=== PATIENT | male | born 1980 | race Caucasian/White ===

== ENCOUNTER 2024-04-02 11:27 | Inpatient (IN) | payer OTHER, SELFPAY ==
[2024-04-02] VITALS (14 sets, daily range): BP systolic 127–160; BP diastolic 88–105; PULSE 80–110; RESP 13–28; TEMP 36.4–36.9; O2SAT 91–94; BMI 63.1
--- NOTE | 2024-04-02 11:45 | ED_ITS ---
HPI - General Adult General Chief complaint: Shortness of Breath/Dyspnea Stated complaint: High D-dimer Time Seen by Provider: 04/02/24 11:28 History of Present Illness HPI narrative: Patient seen in urgent care yesterday. Reports cough/ illness that has been present for about one week with waxing and waning symptoms. Patient received result for labs today and was encouraged to be seen in ED due to elevated d- dimer. Patient reports shortness of breath for about a week. This has been pr ogressively getting worse where he will need to lean against a wall for support. Denies chest pain, light headness. 43 year old man presenting to the emergency department with concern of shortness of breath. Apparently had a high D-dimer also in urgent care yesterday and was today recommended to present to the emergency department directly. Was actually sick starting about 3 weeks ago. Home testing for COVID was negative. Illness included cough and congestive symptoms. Seemed to get better and then worse now over the last week with increasing and marked exertional dyspnea. Normally quite active on the treadmill and does not have trouble with that. Urgent care D-dimer was measured at 5.2 with upper normal of 0.5. This was done in isolation without other lab testing as far as I can determine. Chest x-ray was reportedly normal yesterday and was initiated on then on azithromycin. Took initial dose of azithromycin and spent all night coughing. Some achiness in the right knee but he reports the reconstruction there in the past. Otherwise no leg pain or swelling. Father with a history of postoperative blood clots. Related Data Home Medications ?Medication ?Instructions ?Recorded ?Confirmed albuterol sulfate 90 mcg/actuation 1 inh inhalation Q6H 04/02/24 04/02/24 aerosol inhaler azithromycin PO 04/02/24 Allergies Allergy/AdvReac Type Severity Reaction Status Date / Time No Known Drug Allergies Allergy Verified 04/02/24 12:36 Review of Systems Status of ROS: Reports: 6 or more systems reviewed and unremarkable except as noted in History and below Exam Narrative: Exam Narrative: Pleasant. NAD. Not coughing now. Subtly labored in breathing. Skin is warm and dry. No pain to palpation over the lower extremities. No pitting edema. Lungs are clear actually. Heart in elevated rate and regular rhythm distant. Abdomen is obese. Vitals noted on arrival does include pulse ox 91%. Const: Vital Signs, click to edit/add: Vital Signs - 24 hr 04/02/24 11:35 04/02/24 13:22 04/02/24 13:23 Temperature 98 F Pulse Rate 92 89 Pulse Rate [Pulse Oximeter] 110 H Respiratory Rate 26 H 20 Blood Pressure 141/92 H Blood Pressure [Ri ght Upper Arm] 160/99 H Pulse Oximetry 91 93 92 Oxygen Delivery Me thod Room Air Documenting provider has reviewed patient's vital signs: yes Course Vital Signs Vital signs: Initial Vital Signs Temperature 98 F 04/02/24 11:35 Temperature Source Temporal Artery Scan 04/02/24 11:35 Pulse Rate 110 H 04/02/24 11:35 Respiratory Rate 26 H 04/02/24 11:35 Blood Pressure 160/99 H 04/02/24 11:35 Blood Pressure Mean 119 H 04/02/24 11:35 Pulse Oximetry 91 04/02/24 11:35 Oxygen Delivery Method Room Air 04/02/24 11:35 Vital Signs Temperature 98 F 04/02/24 11:35 Pulse Rate 110 H 04/02/24 11:35 Respiratory Rate 26 H 04/02/24 11:35 Blood Pressure 160/99 H 04/02/24 11:35 Pulse Oximetry 91 04/02/24 11:35 Oxygen Delivery Method Room Air 04/02/24 11:35 Temperature 98 F 04/02/24 11:35 Pulse Rate 89 04/02/24 13:23 Respiratory Rate 20 04/02/24 13:22 Blood Pressure 141/92 H 04/02/24 13:22 Pulse Oximetry 92 04/02/24 13:23 Oxygen Delivery Method Room Air 04/02/24 11:35 Medical Decision Making MDM Narrative Medical decision making narrative: Unsure what to make of this admittedly rather elevated D-dimer in isolation. Certainly concerning symptoms with tachycardia and hypoxia for pulmonary embolus. Some of this might be Pickwick[place]. Surely has bronchitis; possible pneumonia not visualized chest x-ray yesterday. This might also be elevating D- dimer. Will recheck labs. Anticipating CT imaging Independent review of CT imaging by me shows suboptimal study. Small clots noted in lung bases. Discussed with radiology. Overread below. Indication: HIGH ELEVATED D-DIMER, HYPOXIA Technique: CT pulmonary arteriography of the chest was performed following the administration of 150 mL Isovue 370. Comparison: None available. Findings: Lungs and pleura: Few patchy/nodular sub solid opacities in the right upper lobe measuring up to 9 mm. No pleural effusion or pneumothorax. Heart and great vessels: The heart is normal in size. No pericardial effusion. Enlarged main pulmonary artery which can be seen in the setting of pulmonary hypertension. Mildly increased RV: LV ratio suggesting right heart strain. Pulmonary artery opacification is suboptimal. There are occlusive filling defects within the right and left lobar, segmental and subsegmental pulmonary artery branches. Additionally, there may be filling defects within the right upper and middle lobe pulmonary artery branches.. Thyroid and mediastinum: Thyroid is normal. No mediastinal lymphadenopathy by size criteria. Chest wall: Unremarkable. Visualized upper abdomen: Hepatic steatosis. Bones: Multilevel degenerative disc disease. Impression: 1. Suboptimal contrast bolus timing; however, there appear to be acute pulmonary emboli within at least the bilateral lower lobar, segmental and subsegmental pulmonary artery branches. There may be additional filling defects within the right upper and middle lobe as well. Mildly enlarged RV:LV ratio raises concern for right heart strain. 2. Few patchy subsolid nodules in the right upper lobe, the largest measures 9 mm. Findings are favored to be infectious/inflammatory in etiology; however, recommend chest CT follow-up in 3-6 months to ensure resolution. 3. Enlarged main pulmonary artery, which can be seen in setting of pulmonary hypertension. 4. Hepatic steatosis. Findings 1-3 were discussed via telephone with Dr. Klein on 04/02/2024 at 12:55 p.m. Please note that all CT scans at this facility use dose modulation, iterative reconstruction, and/or weight-based dosing when appropriate to reduce radiation dose to as low as reasonably achievable. Dictated by Teressa Harmon MD @ 04/02/2024 1:00:01 PM Discussed with hospitalist for admission. Initiating heparin. Will attempt to get an echocardiogram out of the emergency department considering some evidence of right heart strain. ProBNP of 1000 Vitals stable. Lab Data Lab results reviewed: Yes I reviewed the patient's lab results Labs: Lab Results 04/02/24 04/02/24 Range/Units 12:20 13:19 WBC 10.15 (4.50-11.00) K/uL RBC 5.21 (4.30-5.90) m/uL Hgb 15.2 (13.5-17.5) gm/dL Hct 46.3 (37.0-53.0) % MCV 89 (80-100) fL MCH 29 (26-34) pg MCHC 33 (32-36) gm/dL RDW Coeff of Evelio 13.2 (11.5-15.5) % Plt Count 204 (140-440) K/uL Neut % (Auto) 69.5 (42.0-72.0) % Lymph % (Auto) 21.4 (20-44) % [place] % (Auto) 8.0 (0.0-11.0) % Eos % (Auto) 0.8 (0.0-7.0) % Baso % (Auto) 0.2 (0.0-3.0) % Neut # (Auto) 7.06 H (1.7-7.0) K/uL Lymph # (Auto) 2.17 (0.90-2.90) K/uL [place] # (Auto) 0.80 (0.00-0.90) K/UL Eos # (Auto) 0.08 (0.00-0.50) K/uL Baso # (Auto) 0.02 (0.00-0.30) K/uL Abs Immat Gran (auto) 0.01 (0.00-0.30) K/uL Imm/Tot Granulo (auto) 0.1 % VBG pH 7.406 (7.32-7.43) VBG pCO2 44 (40-50) mmHG VBG pO2 38.5 (25-47) mmHG VBG HCO3 28 (21-28) mmol/L Sodium 138 (135-149) mmol/L Potassium 3.9 (3.6-5.1) mmol/L Chloride 103 (96-114) mmol/L Carbon Dioxide 26 (20-32) mmol/L Anion Gap 9 (7-15) mEq/L BUN 15 (5-24) mg/dL Creatinine 0.8 (0.5-1.5) mg/dL Estimated GFR 114 ml/min Glucose 104 (60-115) mg/dL Calcium 9.4 (8.4-10.6) mg/dL Troponin I 0.02 (0.01-0.04) ng/mL C-Reactive Protein 2.0 H (0.5-1.0) mg/dL NT-Pro-B Natriuret Pep 1000 pg/mL Lab Acknowledgement Test Added ECG Data Attestation: I personally reviewed and interpreted this ECG as follows: (Normal sinus at a rate of 90. Pr no evidence of strain. Baseline irritability however.) Critical Care Time Critical Care Time Total Critical Care Time in Minutes: 30 Discharge Plan Discharge Prescriptions: No Action azithromycin PO albuterol sulfate 90 mcg/actuation HFA aerosol inhaler 1 inh inhalation Q6H Follow Up/Referrals: Provider,Not a Local [Primary Care Provider] -
--- NOTE | 2024-04-02 12:08 | CRLHL7_ITS ---
For Patients: As a result of the Century Cures Act, medical imaging exams and procedure reports are released immediately into your electronic medical record. You may view this report before your referring provider. If you have questions, please contact your health care provider. Indication: HIGH ELEVATED D-DIMER, HYPOXIA Technique: CT pulmonary arteriography of the chest was performed following the administration of 150 mL Isovue 370. Comparison: None available. Findings: Lungs and pleura: Few patchy/nodular sub solid opacities in the right upper lobe measuring up to 9 mm. No pleural effusion or pneumothorax. Heart and great vessels: The heart is normal in size. No pericardial effusion. Enlarged main pulmonary artery which can be seen in the setting of pulmonary hypertension. Mildly increased RV: LV ratio suggesting right heart strain. Pulmonary artery opacification is suboptimal. There are occlusive filling defects within the right and left lobar, segmental and subsegmental pulmonary artery branches. Additionally, there may be filling defects within the right upper and middle lobe pulmonary artery branches.. Thyroid and mediastinum: Thyroid is normal. No mediastinal lymphadenopathy by size criteria. Chest wall: Unremarkable. Visualized upper abdomen: Hepatic steatosis. Bones: Multilevel degenerative disc disease. Impression: 1. Suboptimal contrast bolus timing; however, there appear to be acute pulmonary emboli within at least the bilateral lower lobar, segmental and subsegmental pulmonary artery branches. There may be additional filling defects within the right upper and middle lobe as well. Mildly enlarged RV:LV ratio raises concern for right heart strain. 2. Few patchy subsolid nodules in the right upper lobe, the largest measures 9 mm. Findings are favored to be infectious/inflammatory in etiology; however, recommend chest CT follow-up in 3-6 months to ensure resolution. 3. Enlarged main pulmonary artery, which can be seen in setting of pulmonary hypertension. 4. Hepatic steatosis. Findings 1-3 were discussed via telephone with Dr. Klein on 04/02/2024 at 12:55 p.m. Please note that all CT scans at this facility use dose modulation, iterative reconstruction, and/or weight-based dosing when appropriate to reduce radiation dose to as low as reasonably achievable. Dictated by Teressa Harmon MD @ 04/02/2024 1:00:01 PM (Electronically Signed)
--- OUTSIDE RECORDS SUMMARY | 2024-04-02 12:10 | XMS_ITS | Clinical Summary ---
Author Organization [facility] Address [address] [place] [id number] Care Team Providers Care Administrative And Program Specialist Name Role Phone Isaiah Crespo MD Primary Care Provider [phone] Isaiah Crespo MD Unavailable Allergies No known active allergies Medications No known medications Immunizations Name Administration Dates Next Due COVID-19 MONOVALENT 12+ (Pfizer) 12/04/2020,05/14,05/08/2020 Influenza (IIV3) PF 12/21/2011 Influenza Vaccine >6 months,quad, PF 11/03/2021, 11/13/2020,11/08/2017 Family History Medical History Relation Comments Venous thrombosis Father Obesity Mother had gastric bypa ss Relation Status Comments Father Mother Sister Social History Tobacco Use Types Packs/Day Years Used Date Smoking Tobacco: Never Smokeless Tobacco: Never Alcohol Use Standard Drinks/Week Comments Not Currently 0 (1 standard drink = 0.6 oz pur e alcohol) Social Connection and Isolat ion Panel [NHANES] Answer Date Recorded In a typical week, how many times do you talk on the phone with family, friends, or neighbors? More than three times a week 10/29/2021 How often do you get togethe r with friends or relatives? Once a week 10/29/2021 How often do you attend chur ch or yazidi services? More than 4 times per year 10/29/2021 Do you belong to any clubs o r organizations such as methodist groups, unions, fraternal or athletic groups, or school groups? Yes 10/29/2021 Attends Club or Organization Meetings Not on [place] e 10/29/2021 Are you , , di vorced, , never , or living with a partner? 10/29/2021 AUDIT-C Answer Date Recorded Q1: How often do you have a drink containing alc ohol? Monthly or less 10/29/2021 Q2: How many drinks containi ng alcohol do you have on a typical day when you are drinking? 1 or 2 10/29/2021 Q3: How often do you have si x or more drinks on one occasion? Never 10/29/2021 Overall Financial Resource Strain (CARDIA) Answe r Date Recorded How hard is it for you to pa y for the very basics like food, housing, medical care, and heating? Not very hard 10/29/2021 PHQ-2 Answer Date Recorded PHQ-2 Score 0 11/03/2021 [facility] - Occupational Stress Questionnaire Answer Date Recorded Do you feel stress - tense, restless, nervous, or anxious, or unable to sleep at night because your mind is troubled all the time - these days? Not at all 10/29/2021 Exercise Vital Sign Answer Date Recorde d On average, how many days pe r week do you engage in moderate to strenuous exercise (like a brisk walk)? 7 days 10/29/2021 On average, how many minutes do you engage in exercise at this level? 60 min 10/29/2021 Hunger Vital Sign Answer Date Recorded Within the past 12 months, y ou worried that your food would run out before you got the money to buy more. Never true 10/30/19 22 Within the past 12 months, t he food you bought just didn't last and you didn't have money to get more. Never true 10/29/2021 PRAPARE - Transportation Answer Date Re corded In the past 12 months, has l ack of transportation kept you from medical appointments or from getting medications? No 10/14 In the past 12 months, has l ack of transportation kept you from meetings, work, or from getting things needed for daily living? No 10/29/2021 Housing Stability Vital Sign Answer Vinod e Recorded In the last 12 months, was t here a time when you were not able to pay the mortgage or rent on time? No 10/29/2021 In the last 12 months, how many places have you lived? 1 10/29/2021 In the last 12 months, was t here a time when you did not have a steady place to sleep or slept in a mcc (including now)? No 10/29/2021 Adolescent Education Answer Date Record ed Getting School Help Needed Not on file 11/05 Sex and Gender Information Value Date Recorded Sex Assigned at Male 09/19/2021 5:58 PM CDT Legal Sex Male 5:33 PM CDT Gender Identity Male 09/19/2021 5:58 PM CDT Sexual Orientation Not on file Last Filed Vital Signs Vital Sign Reading Time Taken Comments Blood Pressure 138/88 11/03/2021 6:57 AM CDT Pulse 80 11/03/2021 6:57 AM CDT Temperature 36.8 C (98.3 F) 11/03/2021 6:57 AM CDT Respiratory Rate 16 11/03/2021 6:57 AM CDT Oxygen Saturation 98% 11/03/2021 6:57 AM CDT Inhaled Oxygen Concentration - - Weight 199.7 kg (440 lb 4.8 oz) 11/03/2021 6:57 AM CDT Height 180.3 cm (5' 11) 11/03/2021 6:57 AM CDT Body Mass Index 61.41 11/03/2021 6:57 AM CDT Plan of Treatment Upcoming Encounters Date Type Department Care Team (Late st Contact Info) Description 04/24/2024 9:00 AM CDT Office Visit [facility] [id number] [place] [phone] [place] [id number] [place] [address] Health Maintenance Due Date Last Done Comments HEPATITIS B IMMUNIZATION (1 of 3 - 19+ 3-dose series) 2001 DTAP/TDAP/TD IMMUNIZATION (1 - Tdap) 12/23/2007 ANNUAL REVIEW OF HM ORDERS 11/03/2022 11/03/2021 YEARLY PREVENTIVE VISIT 11/03/2022 11/03/2021 COVID-19 Vaccine ( season) 2023 12/17/2021, 12/04/2020, 05/29/2020, Additional history exists INFLUENZA VACCINE (#1) 2023 2, 11/13/2020, 12/06/2019, Additional history exists PHQ-2 (once per calendar year) 2024 11/03/2021 GLUCOSE 11/03/2024 11/03/2021 ADVANCE CARE PLANNING 11/03/2026 11/03/2021 LIPID 11/03/2026 11/03/2021 ZOSTER IMMUNIZATION (1 of 2) 2032 HEPATITIS C SCREENING Discontinued HIV SCREENING Discontinued HPV IMMUNIZATION Aged Out No longer e ligible based on patient's age to complete this topic MENINGITIS IMMUNIZATION Aged Out No l onger eligible based on patient's age to complete this topic Pneumococcal Vaccine: Pediatrics (0 to 5 Years) and At-Risk Patients (6 to 49 Years) Aged Out No longer eligible based on patient's age to complete this topic Procedures Procedure Name Priority Date/Time Associated Diagnosis Comments COMPREHENSIVE METABOLIC PANEL Routine 11/03/2021 7:46 AM CDT Routine general medical examination at a health care facility LIPID REFLEX TO DIRECT LDL PANEL Routine 11/03/2021 7:46 AM CDT Screening for hyperlipidemia from Last 3 Months or Most Recently Relevant to Health Maintenance Results * (ABNORMAL) Lipid panel reflex to direct LDL Non-fasting (11/03/2021 7:46 AM CDT) Cholesterol 176 <200 mg/dL 11/03/2021 3:06 PM CDT [facility] Triglycerides 97 <150 mg/dL 11/03/2021 3:06 PM CDT [facility] Direct Measure HDL 49 >=40 mg/dL 11/03/2021 3:06 PM CDT [facility] LDL Cholesterol Calculated 108(H) <=100 mg/dL 11/03/2021 3:06 PM CDT [facility] Non HDL Cholesterol 127 <130 mg/dL 11/03/2021 3:06 PM CDT [facility] Patient Fasting > 8hrs? Yes 11/03/2021 3:06 PM CDT [facility] Blood STRUCTURE OF LEFT UPPER LIMB / Unknown Venipuncture / Unknown 11/03/2021 7:46 AM CDT 11/03/2021 7:46 AM CDT Narrative [facility] - 11/03/2021 3:06 PM CDT Cholesterol Desirable: <200 mg/dL Triglycerides Normal: Less than 150 mg/dL Borderline High: 150-199 mg/dL High: 200-499 mg/dL Very High: Greater than or equal to 500 mg/dL Direct Measure HDL Female: Greater than or equal to 50 mg/dL Male: Greater than or equal to 40 mg/dL LDL Cholesterol Desirable: <100mg/dL Above Desirable: 100-129 mg/dL Borderline High: 130-159 mg/dL High: 160-189 mg/dL Very High: >= 190 mg/dL Non HDL Cholesterol Desirable: 130 mg/dL Above Desirable: 130-159 mg/dL Borderline High: 160-189 mg/dL High: 190-219 mg/dL Very High: Greater than or equal to 220 mg/dL us Isaiah Crespo MD LAB - BLOOD ORDERABLES Final Res ult [facility] [address] Lab (no room number, 1st floor of clinic) [place] [address], [facility] [phone] * (ABNORMAL) Comprehensive metabolic panel (BMP + Alb, Alk Phos, ALT, AST, Total. Bili, TP) (11/03/2021 7:46 AM CDT) Sodium 139 133 - 144 mmol/L 11/03/2021 3:06 PM CDT [facility] Potassium 4.4 3.4 - 5.3 mmol/L 11/03/2021 3:06 PM CDT [facility] Chloride 106 94 - 109 mmol/L 11/03/2021 3:06 PM CDT [facility] Carbon Dioxide (CO2) 25 20 - 32 mmol/L 11/03/2021 3:06 PM CDT [facility] Anion Gap 8 3 - 14 mmol/L 11/03/2021 3:06 PM CDT [facility] Urea Nitrogen 10 7 - 30 mg/dL 11/03/2021 3:06 PM CDT [facility] Creatinine 0.75 0.66 - 1.25 mg/dL 11/03/2021 3:06 PM CDT [facility] Calcium 9.5 8.5 - 10.1 mg/dL 11/03/2021 3:06 PM CDT [facility] Glucose 113(H) 70 - 99 mg/dL 11/03/2021 3:06 PM CDT [facility] Alkaline Phosphatase 64 40 - 150 U/L 11/03/2021 3:06 PM CDT [facility] AST 35 0 - 45 U/L 11/03/2021 3:06 PM CDT [facility] ALT 57 0 - 70 U/L 11/03/2021 3:06 PM CDT [facility] Protein Total 7.6 6.8 - 8.8 g/dL 11/03/2021 3:06 PM CDT [facility] Albumin 3.8 3.4 - 5.0 g/dL 11/03/2021 3:06 PM CDT [facility] Bilirubin Total 0.5 0.2 - 1.3 mg/dL 11/03/2021 3:06 PM CDT [facility] GFR Estimate >90 >60 mL/min/1.7 3m2 11/03/2021 3:06 PM CDT [facility] Comment:Effective January 142020 eGFRcr in adults is calculated using the 2020 CKD-EPI creatinine equation which includes age and gender (Tobi et al., NEJM, DOI: 10.1056/LCHYgs3582526) Blood STRUCTURE OF LEFT UPPER LIMB / Unknown Venipuncture / Unknown 11/03/2021 7:46 AM CDT 11/03/2021 7:46 AM CDT us Isaiah Crespo MD LAB - BLOOD ORDERABLES Final Res ult [facility] [address] Lab (no room number, 1st floor of clinic) [place] [address], [facility] [phone] from Last 3 Months or Most Recently Relevant to Health Maintenance Insurance [place] Care Teams Administrative And Program Specialist Relationship Specialty [place] [address] [place] [address] PCP - General Family Medicine 11/03/21 [place] [address] [place] [address] Assigned PCP 10/21/21
[2024-04-02 12:27] LABS: HCO3 VBG 28 mmol/L (21-28); PCO2 VBG 44 mmHG (40-50); PO2 VBG 38.5 mmHG (25-47); pH VBG 7.406 (7.32-7.43)
[2024-04-02 12:44] LABS: Chloride* 103 mmol/L (96-114); Potassium* 3.9 mmol/L (3.6-5.1); Sodium* 138 mmol/L (135-149)
[2024-04-02 12:45] LABS: Basophils Absolute Auto 0.02 K/uL (0.00-0.30); Basophils Percent Auto 0.2 % (0.0-3.0); Eosinophils Absolute Auto 0.08 K/uL (0.00-0.50); Eosinophils Percent Auto 0.8 % (0.0-7.0); Hematocrit 46.3 % (37.0-53.0); Hemoglobin* 15.2 gm/dL (13.5-17.5); Immature Granulocytes Abs Auto 0.01 K/uL (0.00-0.30); Immature Granulocytes Pct Auto 0.1 %; Lymphocytes Absolute Auto 2.17 K/uL (0.90-2.90); Lymphocytes Percent Auto 21.4 % (20-44); Mean Corpuscular HGB Conc 33 gm/dL (32-36); Mean Corpuscular Hemoglobin 29 pg (26-34); Mean Corpuscular Volume 89 fL (80-100); Neutrophils Absolute Auto 7.06 K/uL (1.7-7.0); Neutrophils Percent Auto 69.5 % (42.0-72.0); Platelet Count* 204 K/uL (140-440); RDW Coefficient of Variation % 13.2 % (11.5-15.5); Red Blood Count 5.21 m/uL (4.30-5.90); White Blood Count* 10.15 K/uL (4.50-11.00)
[2024-04-02 12:47] LABS: Anion Gap 9 mEq/L (7-15); Blood Urea Nitrogen* 15 mg/dL (5-24); Calcium* 9.4 mg/dL (8.4-10.6); Carbon Dioxide* 26 mmol/L (20-32); Creatinine* 0.8 mg/dL (0.5-1.5); Estimated Glomerular Filt Rate 114 ml/min; Glucose* 104 mg/dL (60-115)
[2024-04-02 12:53] LABS: Slide Review Reflex No
[2024-04-02 13:00] LABS: Troponin I* 0.02 ng/mL (0.01-0.04)
[2024-04-02 13:09] LABS: NT Pro B Type NatriureticPept* 1000 pg/mL
[2024-04-02 13:16] LABS: D Dimer Quantitative* 4.79 ug/ml (0.00-0.50)
[2024-04-02 13:40] LABS: INR 0.99 (0.91-1.10); Prothrombin Time 13.7 Seconds
[2024-04-02 13:41] LABS: Partial Thromboplastin Time* 24 Seconds (23-33)
[2024-04-02] MEDS: HEPARIN 25,000 UNIT/500 ML BAG 0.36 UNIT IV (13:45)
[2024-04-02] MEDS: HEPARIN 5,000 UNIT/0.5 ML INJ 10000 UNIT IVP (13:47)
[2024-04-02 14:09] LABS: PCR FLU A Negative PCR FLU A (Negative); PCR FLU B Negative PCR FLU B (Negative); PCR RSV Negative PCR RSV (Negative); SARS PCR* Negative SARS-CoV-2 (Negative)
--- NOTE | 2024-04-02 15:02 | P.IMHP_ITS ---
Hospitalist- H&P: HPI History of Present Illness Date Seen: 04/02/24 Chief complaint: High D-dimer Narrative: James Haney is a 43 year old male who presented to ER today at the behest of the [facility] for an elevated D-Dimer in the setting of recent URI. He's had a cough and shortness of breath for the past 3 weeks. No hemoptysis, negative home COVID testing. No chest pain or LE edema. Seen in Urgent Care yesterday, given Azithromycin and checked a D-dimer. Results didn't return until today and were high, so he was sent to ER. ER Course and Findings: - no hypoxia or hypotension, HR 110 - CTA revealed B PEs, possible R heart strain, incidental R upper lobe nodules - negative COVID/Flu/RSV - heparin gtt initiated Patient admitted for monitoring, transition to oral anticoagulation, TTE to evaluate for R heart strain. Histories updated below; no daily medications. Checks BP at the pharmacy intermittently, typically runs 130/80s. Walks most days of the week. PCP at [place] (Dr. Crespo). Review of Systems Status of ROS: Reports: 10 or more systems reviewed and unremarkable except as noted in History and below PFSH PFSH Surgical History (Updated 04/02/24 @ 15:03 by Ladi Palma MD) Hx of knee surgery ?Z98.890 - Other specified postprocedural states (ICD-10) Social History (Updated 04/02/24 @ 15:05 by Ladi Palma MD) Narrative: Works in [employer], to Chantal (would be MDM if needed), 2 children. Nonsmoker, no concerning ETOH or drug use. Full Code. What is your current living situation?: I presently have a place to live Problems where you live: no known problems Problems where you live details: none In the past 12 months, utilities in danger of being shut off: no In past 12 months, lack of transportation kept you from medical appts, meetings, work, or getting things needed for daily living: no In the past 12 mos, have been you worried that your food would run out before you had money to buy more?: never true In the past 12 mos, the food you bought just didn't last and you didn't have money to buy more?: never true Highest level of school completed/degree received: Bachelor's degree Smoking Status: Never smoker Do you use any of these nicotine containing products: None How often do you have a drink containing alcohol: never How often do you have six or more drinks on one occasion: Never AUDIT-C Alcohol total score: 0 Non-prescribed substance use: denies use Caffeine: Yes (1 soda per day) How often does anyone, including family, friends and others, physically hurt you : never How often does anyone, including family, friends and others, insult or talk down to you: never How often does anyone, including family, friends and others, threaten you with harm: never How often does anyone, including family, friends and others, scream or curse at you: never service: No Meds Home Medications and Allergies Home Medications ?Medication ?Instructions ?Recorded ?Confirmed ?Type albuterol sulfate 90 mcg/actuation 1 inh inhalation Q6H 04/02/24 04/02/24 History aerosol inhaler azithromycin 250 mg tablet 250 mg PO DIRECTED 04/02/24 04/02/24 History Allergies Allergy/AdvReac Type Severity Reaction Status Date / Time No Known Drug Allergies Allergy Verified 04/02/24 12:36 Exam Narrative: Exam Narrative: GEN: Alert and oriented, nontoxic, comfortable in bed. Speaking in full sentences HEENT: EOMIs bilaterally, no scleral icterus CV: RRR, No concerning murmurs R: Air movement adequate, no concerning wheezing Ext: wwp, no concerning edema Skin: No concerning skin lesions or rashes on exposed skin Neuro: No focal deficits Psych: Appropriate Const: Vital Signs, click to edit/add: Vital Signs - 24 hr 04/02/24 11:35 04/02/24 13:11 04/02/24 13:22 Temperature 98 F Pulse Rate 92 Pulse Rate [Pulse Oximeter] 110 H Respiratory Rate 26 H 20 Blood Pressure 141/92 H Blood Pressure [Ri ght Arm] Blood Pressure [Ri ght Upper Arm] 160/99 H Pulse Oximetry 91 92 93 Oxygen Delivery Me thod Room Air 04/02/24 13:23 04/02/24 13:30 04/02/24 13:32 Temperature Pulse Rate 89 86 85 Pulse Rate [Pulse Oximeter] Respiratory Rate Blood Pressure 127/92 H Blood Pressure [Ri ght Arm] Blood Pressure [Ri ght Upper Arm] Pulse Oximetry 92 92 92 Oxygen Delivery Me thod 04/02/24 13:45 04/02/24 14:15 04/02/24 14:51 Temperature 98.5 F Pulse Rate 82 Pulse Rate [Pulse Oximeter] 80 Respiratory Rate 13 16 19 Blood Pressure Blood Pressure [Ri ght Arm] 128/105 H Blood Pressure [Ri ght Upper Arm] Pulse Oximetry 94 93 93 Oxygen Delivery Me thod Room Air Room Air Hospitalist - H&P: Result Labs Labs: Short CBC 04/02/24 Range/Units 12:20 WBC 10.15 (4.50-11.00) K/uL Hgb 15.2 (13.5-17.5) gm/dL Hct 46.3 (37.0-53.0) % Plt Count 204 (140-440) K/uL BMP 04/02/24 12:20 Sodium 138 Potassium 3.9 Chloride 103 Carbon Dioxide 26 BUN 15 Creatinine 0.8 Glucose 104 Calcium 9.4 Cardiac Enzymes 04/02/24 Range/Units 12:20 Troponin I 0.02 (0.01-0.04) ng/mL Assessment and Plan Assessment and plan (1) Pulmonary emboli: Problem comment: - TTE to evaluate for R heart strain, BLE ultrasounds - transition from heparin gtt to Eliquis pending TTE results Status: Acute (2) Lung nodule seen on imaging study: Problem comment: - incidentally noted on imaging 04/02, patient aware, recommend repeat chest CT 3-6 months Status: Acute Plan - per above, likely home tomorrow - updated at bedside, questions answered
--- NOTE | 2024-04-02 16:45 | CRLHL7_ITS ---
For Patients: As a result of the Century Cures Act, medical imaging exams and procedure reports are released immediately into your electronic medical record. You may view this report before your referring provider. If you have questions, please contact your health care provider. INDICATION: Leg pain and swelling. TECHNIQUE: Ultrasound venous duplex bilateral lower extremity. Compression venous exam was performed using lema-scale, color Doppler, and spectral Doppler analysis. COMPARISON: None. FINDINGS: Deep veins: Sonographic imaging demonstrates the bilateral common femoral, deep femoral, superficial femoral, popliteal, posterior tibial veins to be fully compressible with normal color Doppler blood flow. Superficial veins: Greater saphenous vein are fully compressible. No popliteal cyst. IMPRESSION: No DVT in the bilateral lower extremities. Dictated by Allan Whittaker MD @ 04/02/2024 6:51:12 PM (Electronically Signed)
[2024-04-02] MEDS: PERFLUTREN LIPID MICROSPHERES 2 ML VIAL IVP (17:36)
--- NOTE | 2024-04-02 19:02 | PC.NURSE ---
End of shift-- Pleasant and cooperative, alert and oriented patient. VSS and pt is afebrile. SPO2 maintained>90% on RA. He denied any pain. LS CTA. Telemetry NSR to sinus tach with HR in low 100s. Pt had echo and bilateral LE US at bedside this evening and tolerated it well. Report to oncoming shift.
[2024-04-02] MEDS: SODIUM CHLORIDE 0.9 % (FLUSH) 10 ML SYRINGE 5 ML IVF (21:24)
[2024-04-02] MEDS: APIXABAN 5 MG TABLET 10 MG PO (21:24)
[2024-04-03 03:00] VITALS: BP 141/91; PULSE 89; RESP 24; TEMP 36.4; O2SAT 92
--- NOTE | 2024-04-03 06:41 | PC.NURSE ---
End of shift: Pt AxOx4, cooperative, and pleasant. Spo2 maintained > 90% on RA throughout the night. Pt denies pain and SOB. Pt using restroom independently. Tolerating fluids well. Pt appears watching television with call light in reach. ?
[2024-04-03 06:45] LABS: Basophils Absolute Auto 0.02 K/uL (0.00-0.30); Basophils Percent Auto 0.2 % (0.0-3.0); Eosinophils Absolute Auto 0.11 K/uL (0.00-0.50); Hematocrit 44.6 % (37.0-53.0); Hemoglobin* 14.8 gm/dL (13.5-17.5); Lymphocytes Absolute Auto 2.71 K/uL (0.90-2.90); Lymphocytes Percent Auto 24.7 % (20-44); Mean Corpuscular HGB Conc 33 gm/dL (32-36); Mean Corpuscular Hemoglobin 30 pg (26-34); Mean Corpuscular Volume 89 fL (80-100); Monocytes Percent Auto 7.3 % (0.0-11.0); Neutrophils Absolute Auto 7.34 K/uL (1.7-7.0); Neutrophils Percent Auto 66.8 % (42.0-72.0); Platelet Count* 218 K/uL (140-440); RDW Coefficient of Variation % 13.2 % (11.5-15.5); White Blood Count* 10.98 K/uL (4.50-11.00)
[2024-04-03 06:55] LABS: Slide Review Reflex No
[2024-04-03 07:00] VITALS: BP 141/103; PULSE 94; RESP 22; TEMP 36.7; O2SAT 93
[2024-04-03 07:02] LABS: Chloride* 102 mmol/L (96-114); Potassium* 4.1 mmol/L (3.6-5.1); Sodium* 136 mmol/L (135-149)
[2024-04-03 07:05] LABS: Anion Gap 10 mEq/L (7-15); Blood Urea Nitrogen* 13 mg/dL (5-24); Carbon Dioxide* 24 mmol/L (20-32); Creatinine* 0.7 mg/dL (0.5-1.5); Est. Creatinine Clearance* 147.91; Estimated Glomerular Filt Rate 119 ml/min; Glucose* 125 mg/dL (60-115)
[2024-04-03 07:06] LABS: Calcium* 9.3 mg/dL (8.4-10.6)
[2024-04-03] MEDS: APIXABAN 5 MG TABLET 10 MG PO (09:05)
--- NOTE | 2024-04-03 09:42 | PM.DS1 ---
DS: Providers Provider Date Seen: 04/03/24 Date of admission: 04/02/24 20:29 Primary care physician: Not a Local Provider Admitting Clinician: Claudia Perez MD Attending Physician on discharge: PETERSON Diaz, [facility]ist Date of Discharge: 04/03/24 DS: Diagnosis Discharge Diagnosis (1) Pulmonary emboli: Status: Acute Problem details: -CT shows Suboptimal contrast bolus timing; however, there appear to be acute pulmonary emboli within at least the bilateral lower lobar, segmental and subsegmental pulmonary artery branches. There may be additional filling defects within the right upper and middle lobe as well. Mildly enlarged RV:LV ratio raises concern for right heart strain -TTE to evaluate for R heart strain, 04/02/24: Final Impressions: 1. Technically limited exam. 2. Normal LV size, normal wall thickness, estimated EF of 70 - 75%. 3. RV is poorly visualized, systolic function is reduced based on limited views. 4. No significant valve disease detected. 5. Echo contrast was administered to enhance visualization of all left ventricular segments. -BLE ultrasound negative for DVTs -transitioned from IV heparin to Eliquis On day of discharge, 04/03/2024, patient feeling much better, less short of breath. Will continue oral Eliquis 10 mg b.i.d. x7 days, then 5 mg b.i.d. indefinitely, 3-6 months, pending outpatient follow-up with PCP. (2) Lung nodule seen on imaging study: Status: Acute Problem details: - incidentally noted on imaging 04/02, patient aware, recommend repeat chest CT 3-6 months DS: Summary Hospital Course Hospital Course: [age] year old male was admitted to the medical floor for further workup and initiation of anticoagulation for pulmonary emboli. Echocardiogram completed. Patient transition from IV heparin to oral Eliquis. Outpatient follow-up with PCP for further management. Course of care and details as noted above. CT chest showing incidental findings of enlarged main pulmonary artery, which can be seen in setting of pulmonary hypertension. Hepatic steatosis. Noted, outpatient follow-up with PCP as appropriate. Remainder of chronic medical comorbidities were monitored and managed with home medications. Status at Discharge Functional status at discharge: independent ambulation Overall status at discharge: patient is back to baseline Time Spent with Patient Time attestation: Total time spent providing and/or coordinating discharge services: Time spent: Greater than 30 minutes Exam Narrative: Exam Narrative: PHYSICAL EXAM General: Pleasant, conversant, NAD Cardiovascular: RRR Pulmonary: No dyspnea Neurological: Alert, answering questions appropriately Skin: Warm, dry. Const: Vital Signs, click to edit/add: Vital Signs - 24 hr 04/02/24 11:35 04/02/24 13:11 04/02/24 13:22 Temperature 98 F Pulse Rate 92 Pulse Rate [Pulse Oximeter] 110 H Respiratory Rate 26 H 20 Blood Pressure 141/92 H Blood Pressure [Ri ght Arm] Blood Pressure [Ri ght Upper Arm] 160/99 H Pulse Oximetry 91 92 93 Oxygen Delivery Me thod Room Air 04/02/24 13:23 04/02/24 13:30 04/02/24 13:32 Temperature Pulse Rate 89 86 85 Pulse Rate [Pulse Oximeter] Respiratory Rate Blood Pressure 127/92 H Blood Pressure [Ri ght Arm] Blood Pressure [Ri ght Upper Arm] Pulse Oximetry 92 92 92 Oxygen Delivery Me thod 04/02/24 13:45 04/02/24 14:15 04/02/24 14:51 Temperature 98.5 F Pulse Rate 82 Pulse Rate [Pulse Oximeter] 80 Respiratory Rate 13 16 19 Blood Pressure Blood Pressure [Ri ght Arm] 128/105 H Blood Pressure [Ri ght Upper Arm] Pulse Oximetry 94 93 93 Oxygen Delivery Me thod Room Air Room Air 04/02/24 15:00 04/02/24 15:00 04/02/24 16:55 Temperature Pulse Rate 100 Pulse Rate [Pulse Oximeter] 96 Respiratory Rate 28 H 28 H Blood Pressure Blood Pressure [Ri ght Arm] Blood Pressure [Ri ght Upper Arm] Pulse Oximetry 91 Oxygen Delivery Me thod Room Air 04/02/24 17:41 04/02/24 19:00 04/02/24 23:00 Temperature 98.2 F 97.9 F Pulse Rate Pulse Rate [Pulse Oximeter] 96 86 Respiratory Rate 28 H 18 20 Blood Pressure Blood Pressure [Ri ght Arm] 137/90 H 157/99 H Blood Pressure [Ri ght Upper Arm] Pulse Oximetry 91 92 93 Oxygen Delivery Me thod Room Air Room Air Room Air 04/02/24 23:00 04/02/24 23:00 04/03/24 03:00 Temperature 97.5 F L 97.6 F Pulse Rate 101 H Pulse Rate [Pulse Oximeter] 93 89 Respiratory Rate 20 24 Blood Pressure Blood Pressure [Ri ght Arm] 141/88 H 141/91 H Blood Pressure [Ri ght Upper Arm] Pulse Oximetry 93 92 Oxygen Delivery Me thod Room Air Room Air 04/03/24 07:00 04/03/24 07:00 Temperature 98.0 F Pulse Rate Pulse Rate [Pulse Oximeter] 94 Respiratory Rate 22 Blood Pressure Blood Pressure [Ri ght Arm] 141/103 H Blood Pressure [Ri ght Upper Arm] Pulse Oximetry 93 93 Oxygen Delivery Me thod Room Air Room Air DS: Data Data Completed and Pending Labs on day of discharge: Labs from last 24 hours 04/03/24 04/02/24 04/02/24 06:12 13:22 13:19 WBC 10.98 RBC 5.00 Hgb 14.8 Hct 44.6 MCV 89 MCH 30 MCHC 33 RDW Coeff of Evelio 13.2 Plt Count 218 Neut % (Auto) 66.8 Lymph % (Auto) 24.7 [place] % (Auto) 7.3 Eos % (Auto) 1.0 Baso % (Auto) 0.2 Neut # (Auto) 7.34 H Lymph # (Auto) 2.71 [place] # (Auto) 0.80 Eos # (Auto) 0.11 Baso # (Auto) 0.02 Abs Immat Gran (auto) 0.00 Imm/Tot Granulo (auto) 0.0 INR APTT D-Dimer Quant (PE/DVT) VBG pH VBG pCO2 VBG pO2 VBG HCO3 Sodium 136 Potassium 4.1 Chloride 102 Carbon Dioxide 24 Anion Gap 10 BUN 13 Creatinine 0.7 Estimated Creat Clear 147.91 Estimated GFR 119 Glucose 125 H Calcium 9.3 Troponin I C-Reactive Protein NT-Pro-B Natriuret Pep SARS-CoV-2 (PCR) Negative SARS-CoV-2 Influenza Type A (PCR) Negative PCR FLU A Influenza Type B (PCR) Negative PCR FLU B RSV (PCR) Negative PCR RSV Lab Acknowledgement Test Added 04/02/24 12:20 WBC 10.15 RBC 5.21 Hgb 15.2 Hct 46.3 MCV 89 MCH 29 MCHC 33 RDW Coeff of Evelio 13.2 Plt Count 204 Neut % (Auto) 69.5 Lymph % (Auto) 21.4 [place] % (Auto) 8.0 Eos % (Auto) 0.8 Baso % (Auto) 0.2 Neut # (Auto) 7.06 H Lymph # (Auto) 2.17 [place] # (Auto) 0.80 Eos # (Auto) 0.08 Baso # (Auto) 0.02 Abs Immat Gran (auto) 0.01 Imm/Tot Granulo (auto) 0.1 INR 0.99 APTT 24 D-Dimer Quant (PE/DVT) 4.79 H VBG pH 7.406 VBG pCO2 44 VBG pO2 38.5 VBG HCO3 28 Sodium 138 Potassium 3.9 Chloride 103 Carbon Dioxide 26 Anion Gap 9 BUN 15 Creatinine 0.8 Estimated Creat Clear Estimated GFR 114 Glucose 104 Calcium 9.4 Troponin I 0.02 C-Reactive Protein 2.0 H NT-Pro-B Natriuret Pep 1000 SARS-CoV-2 (PCR) Influenza Type A (PCR) Influenza Type B (PCR) RSV (PCR) Lab Acknowledgement Imaging Venous duplex, bilateral: Attestation: I have reviewed the pertinent imaging results. Radiologist's impression: FINDINGS: Deep veins: Sonographic imaging demonstrates the bilateral common femoral, deep femoral, superficial femoral, popliteal, posterior tibial veins to be fully compressible with normal color Doppler blood flow. Superficial veins: Greater saphenous vein are fully compressible. No popliteal cyst. IMPRESSION: No DVT in the bilateral lower extremities. CTA chest: Attestation: I have reviewed the pertinent imaging results. Radiologist's impression: Lungs and pleura: Few patchy/nodular sub solid opacities in the right upper lobe measuring up to 9 mm. No pleural effusion or pneumothorax. Heart and great vessels: The heart is normal in size. No pericardial effusion. Enlarged main pulmonary artery which can be seen in the setting of pulmonary hypertension. Mildly increased RV: LV ratio suggesting right heart strain. Pulmonary artery opacification is suboptimal. There are occlusive filling defects within the right and left lobar, segmental and subsegmental pulmonary artery branches. Additionally, there may be filling defects within the right upper and middle lobe pulmonary artery branches.. Thyroid and mediastinum: Thyroid is normal. No mediastinal lymphadenopathy by size criteria. Chest wall: Unremarkable. Visualized upper abdomen: Hepatic steatosis. Bones: Multilevel degenerative disc disease. Impression: 1. Suboptimal contrast bolus timing; however, there appear to be acute pulmonary emboli within at least the bilateral lower lobar, segmental and subsegmental pulmonary artery branches. There may be additional filling defects within the right upper and middle lobe as well. Mildly enlarged RV:LV ratio raises concern for right heart strain. 2. Few patchy subsolid nodules in the right upper lobe, the largest measures 9 mm. Findings are favored to be infectious/inflammatory in etiology; however, recommend chest CT follow-up in 3-6 months to ensure resolution. 3. Enlarged main pulmonary artery, which can be seen in setting of pulmonary hypertension. 4. Hepatic steatosis. Discharge Plan Discharge Disposition: Home, Self-Care Date of Admission: 04/02/24 20:29 Attending Provider on Discharge: Vanessa Hagan Primary Care Provider: Provider,Not a Local Condition: Stable Anticipated Discharge Date/Time: 04/03/24 09:36 Discharge Medications: New Eliquis 5 mg Tablet 10 mg PO BID Qty: 90 0RF Rx Instructions: 10mg (2 tabs) po bid x 7 days, followed by 5mg (1 tab) po bid indefinitely Continued albuterol sulfate 90 mcg/actuation HFA aerosol inhaler 1 inh inhalation Q6H Discontinued azithromycin 250 mg tablet 250 mg PO DIRECTED Rx Instructions: as on package Discharge Orders: Discharge Order (Routine); Ordered 04/03/24 Ordered By: Vanessa Hagan Patient Education: Apixaban (By mouth), Pulmonary Embolism (GEN) Additional Instructions: Blood thinner (Eliquis): 10mg twice/day for one week, then start 5mg twice/day. Repeat CT scan of your lungs in 3-6 months (for R lung nodule) with your PCP. Contact your PCP to see if he would like you to move up your upcoming appointment. You can stop taking the azithromycin (antibiotic). Activity Level: Activity as Tolerated Discharge Diet: Regular Follow Up Appointments: Provider,Not a Local [Primary Care Provider] - Forms: [employer] Info Instructions
--- NOTE | 2024-04-03 11:34 | PC.NURSE ---
Discharge: The patient discharged home with his this AM. All discharge instructions regarding medication, S/S and F/U were covered with the patient and his . IV was removed. Educated on bleeding risk as well. All questions were answered. Kayley NOEL BSN
== END 2024-04-03 10:40 | disposition home or self-care (01) | DRG 176 ==
LOC: ED 13:44 → MEDSURG 13:59
PROVIDERS: Admitting Provider Family Medicine; Emergency Provider Family Medicine; Visit Provider Family Medicine
DX: I26.94 Multiple subsegmental thrombotic pulmonary emboli without acute cor pulmonale (principal); Z68.44 Body mass index [BMI] 60.0-69.9, adult; E66.9 Obesity, unspecified; J06.9 Acute upper respiratory infection, unspecified; R91.8 Other nonspecific abnormal finding of lung field; I28.8 Other diseases of pulmonary vessels; K76.0 Fatty (change of) liver, not elsewhere classified
CPT/HCPCS: 36415; 71275; 80048; 82803; 83880; 84484; 85025; 85379; 85610; 85730; 86140; 87631; 93005; 93306; 93970; 94761; 99284; 99285; A9270; G0378; J1644; Q9957; Q9967